=== PATIENT | female | born 1945 | race Caucasian/White ===

== ENCOUNTER 2017-01-08 18:21 | Emergency (ER) | payer BC ==
[~2017-01-08] VITALS: Ht 157.5 cm; Wt 73.0 kg
[~2017-01-08 18:21] MED LIST: DETROL PO; TRICOR PO
[2017-01-08 19:13] LABS: HEMATOCRIT 42.6 % (36.0-46.0); MCH 33.2 PG (29.0-34.0); MCV 97.5 FL (83-99); MEAN PLAT.VOLUME 10.7 uM^3 (9.5-12.4); PLATELET COUNT 254 K/uL (156-360); RBC DIS.WIDTH-CV 11.5 % (11.8-14.6); RBC DIS.WIDTH-SD 41.7 % (39-53); RED BLOOD COUNT 4.37 M/uL (3.80-5.20); WHITE BLOOD COUNT 6.5 K/uL (4.1-10.2)
[2017-01-08 19:22] LABS: CHLORIDE 103 mEq/L (99-109); POTASSIUM 3.9 mEq/L (3.7-5.4); SODIUM 141 mEq/L (136-147)
[2017-01-08 19:25] LABS: GLUCOSE 95 mg/dL (70-99)
[2017-01-08 19:26] LABS: ANION GAP 14 MEQ/L (2-14)
[2017-01-08 19:27] LABS: TOTAL BILIRUBIN 0.4 mg/dL (0.0-1.0)
[2017-01-08 19:28] LABS: ALKALINE PHOSPHATASE 73 IU/L (3-129); GFR ESTIMATE (CALCULATED) > 59 mL/min/
[2017-01-08 19:29] LABS: UREA NITROGEN (BUN) 18 mg/dL (9-23)
[2017-01-08 21:13] LABS: ADD MIUA? NO; BILIRUBIN NEGATIVE; BLOOD NEGATIVE; COLOR STRAW ((YELLOW)); GLUCOSE (STRIP) NEGATIVE; KETONES NEGATIVE; LEUKOCYTES NEGATIVE; NITRITE NEGATIVE; PROTEIN (STRIP) NEGATIVE; SPECIFIC GRAVITY 1.006 (1.000-1.030); UCUL ADDED? NO; UROBILINOGEN 0.2 MG/DL (0.2-1.0)
[2017-01-08 22:11] LABS: AMYLASE 60 IU/L (1-118)
[2017-01-08 22:19] LABS: LIPASE 15 U/L (1.0-51.0)
[2017-01-09] MEDS ORDERED: ZANTAC300 MG PO (00:05)
[2017-01-09] MEDS ORDERED: CARAFATE1 GM PO (00:05)
[2017-01-09 00:58] VITALS: BP 148/70
== END 2017-01-09 01:00 | disposition home or self-care (01) ==
LOC: EME 18:21
DX: K29.00 Acute gastritis without bleeding (principal); R10.12 Left upper quadrant pain; M54.9 Dorsalgia, unspecified; K76.0 Fatty (change of) liver, not elsewhere classified; E78.5 Hyperlipidemia, unspecified; Z87.891 Personal history of nicotine dependence
CPT/HCPCS: 74177; 80053; 81003; 82150; 83690; 85027; 99281; 99284; J7030

== ENCOUNTER 2017-09-04 11:57 | Emergency (ER) | payer OTHER, BC ==
[~2017-09-04] VITALS: Ht 157.5 cm; Wt 73.8 kg
[~2017-09-04 11:57] MED LIST changes: +CARAFATE1 GM PO; +ZANTAC300 MG PO
[2017-09-04 12:29] LABS: HEMATOCRIT 42.6 % (36.0-46.0); HEMOGLOBIN 14.7 G/DL (11.9-15.5); MCH 33.4 PG (29.0-34.0); MCHC 34.5 G/DL (30.0-36.0); MCV 96.8 FL (83-99); PLATELET COUNT 232 K/uL (156-360); RBC DIS.WIDTH-CV 11.7 % (11.8-14.6); RBC DIS.WIDTH-SD 41.7 % (39-53)
[2017-09-04 12:40] LABS: ALBUMIN 4.3 g/dL (3.2-4.8); CHLORIDE 105 mEq/L (99-109); POTASSIUM 3.8 mEq/L (3.7-5.4); SODIUM 139 mEq/L (136-147)
[2017-09-04 12:41] LABS: MAGNESIUM 2.1 mg/dL (1.3-2.7)
[2017-09-04 12:42] LABS: GLUCOSE 136 mg/dL (70-99); TOTAL PROTEIN 7.3 g/dL (6.4-8.3)
[2017-09-04 12:44] LABS: TOTAL BILIRUBIN 0.4 mg/dL (0.0-1.0)
[2017-09-04 12:46] LABS: ALKALINE PHOSPHATASE 87 IU/L (3-129); CREATININE 0.9 mg/dL (0.6-1.3); GFR ESTIMATE (CALCULATED) > 59 mL/min/
[2017-09-04 12:47] LABS: UREA NITROGEN (BUN) 13 mg/dL (9-23)
[2017-09-04 12:48] LABS: AST (GOT) 48 IU/L (2-34)
[2017-09-04 12:49] LABS: ALT (GPT) 56 IU/L (3-49); LIPASE 15 U/L (1.0-51.0)
[2017-09-04] MEDS ORDERED: MECLIZINE HCL25 MG PO (14:10)
[2017-09-04 14:30] VITALS: BP 141/75
== END 2017-09-04 15:26 | disposition home or self-care (01) ==
LOC: EME 11:57
PROVIDERS: Emergency Medicine
DX: H81.10 Benign paroxysmal vertigo, unspecified ear (principal); I45.4 Nonspecific intraventricular block; R94.31 Abnormal electrocardiogram [ECG] [EKG]; I10 Essential (primary) hypertension; E78.5 Hyperlipidemia, unspecified; J45.909 Unspecified asthma, uncomplicated; Z87.891 Personal history of nicotine dependence; Z88.1 Allergy status to other antibiotic agents; Z88.6 Allergy status to analgesic agent; Z88.5 Allergy status to narcotic agent; Z88.0 Allergy status to penicillin; Z88.8 Allergy status to other drugs, medicaments and biological substances
CPT/HCPCS: 80053; 83690; 83735; 85027; 93005; 99281; 99284; J2405; J7030

== ENCOUNTER 2017-09-06 11:11 | Emergency (ER) | payer OTHER, BC ==
[~2017-09-06] VITALS: Ht 157.5 cm; Wt 73.4 kg
[~2017-09-06 11:11] MED LIST changes: +MECLIZINE HCL25 MG PO
[2017-09-06 12:20] LABS: BASOPHIL (%) 0.4 % (0-1); EOSINOPHIL (%) 0.7 % (0-5); HEMATOCRIT 39.4 % (36.0-46.0); HEMOGLOBIN 13.7 G/DL (11.9-15.5); IMMATURE GRANULOCYTE (%) 0.2 % (0.0-0.7); LYMPHOCYTE (%) 32.4 % (15-42); LYMPHOCYTE COUNT 1.8 K/uL (1.0-2.8); MCH 33.3 PG (29.0-34.0); MCHC 34.8 G/DL (30.0-36.0); MCV 95.9 FL (83-99); MONOCYTE (%) 17.8 % (3-12); NEUTROPHIL (%) 48.5 % (45-76); NEUTROPHIL COUNT 2.7 K/uL (1.8-6.4); PLATELET COUNT 217 K/uL (156-360); RBC DIS.WIDTH-CV 11.5 % (11.8-14.6); RBC DIS.WIDTH-SD 40.4 % (39-53); RED BLOOD COUNT 4.11 M/uL (3.80-5.20); WHITE BLOOD COUNT 5.6 K/uL (4.1-10.2)
[2017-09-06 12:30] LABS: CHLORIDE 107 mEq/L (99-109); SODIUM 141 mEq/L (136-147)
[2017-09-06 12:32] LABS: GLUCOSE 96 mg/dL (70-99)
[2017-09-06 12:35] LABS: CREATININE 0.8 mg/dL (0.6-1.3); GFR ESTIMATE (CALCULATED) > 59 mL/min/
[2017-09-06 12:36] LABS: UREA NITROGEN (BUN) 13 mg/dL (9-23)
[2017-09-06 13:49] VITALS: BP 145/63
== END 2017-09-06 14:13 | disposition home or self-care (01) ==
LOC: EME 11:11
PROVIDERS: Emergency Medicine
DX: R42 Dizziness and giddiness (principal); R94.31 Abnormal electrocardiogram [ECG] [EKG]; I10 Essential (primary) hypertension; E78.5 Hyperlipidemia, unspecified; J45.909 Unspecified asthma, uncomplicated; Z87.891 Personal history of nicotine dependence; Z86.69 Personal history of other diseases of the nervous system and sense organs; Z88.1 Allergy status to other antibiotic agents; Z88.6 Allergy status to analgesic agent; Z88.5 Allergy status to narcotic agent; Z88.0 Allergy status to penicillin; Z88.8 Allergy status to other drugs, medicaments and biological substances
CPT/HCPCS: 70450; 80048; 85025; 93005; 99281; 99284; J2405; J7030